=== PATIENT | female | born 1950 | race Caucasian/White ===

== ENCOUNTER 2024-07-31 22:02 | Emergency (ER) | payer MEDICARE, SELFPAY ==
[2024-07-31] VITALS (8 sets, daily range): BP systolic 174–220; BP diastolic 76–94; PULSE 48–63; RESP 13–22; TEMP 35.7; O2SAT 95–97; BMI 33.6
--- NOTE | 2024-07-31 22:34 | EKG12_ITS ---
Test Reason : REPEAT CP Blood Pressure : */* mmHG Vent. Rate : 56 BPM Atrial Rate : 56 BPM P-R Int : 164 ms QRS Dur : 86 ms QT Int : 456 ms P-R-T Axes : 43 18 37 degrees QTcB Int : 440 ms Sinus bradycardia Septal infarct , age undetermined Abnormal ECG Confirmed by LA SALINAS MD [id number]), editor news ALICE HAQ ([id number]) on 08/03/2024 8:51:34 AM Referred By: Confirmed By: LA SALINAS MD
--- NOTE | 2024-07-31 22:48 | RAD_ITS ---
EXAM: XR Chest, 2 Views CLINICAL INDICATION: CHEST PAIN TECHNIQUE: Frontal and lateral views of the chest. COMPARISON: No relevant prior studies available. FINDINGS: LUNGS AND PLEURAL SPACES: Left lower lobe atelectasis or pneumonia. Clinical correlation is recommended. No pneumothorax. HEART: Unremarkable. No cardiomegaly. MEDIASTINUM: Unremarkable. Normal mediastinal contour. BONES/JOINTS: Unremarkable. No acute fracture. RAD/Chest PA and Lateral IMPRESSION: Left lower lobe atelectasis or pneumonia. Clinical correlation is recommended. Reading Location: [id number]
[2024-07-31 22:51] LABS: Absolute Lymphocyte Count 1.94 X10^3/uL (0.83-4.51); Absolute Neutrophil Count 3.3 X10^3/uL (2.0-7.7); Basophil# 0.03 X10^3/uL; Basophil% 0.5 % (0-1); Eosinophil# 0.31 X10^3/uL; Eosinophils% 5.1 % (0-5); Hematocrit 41.7 % (37-47); Lymphocyte # 1.94 X10^3/ul (0.83-4.51); Lymphocyte % 31.9 % (19-41); Mean Corp Hgb Conc 33.6 g/dL (32-36); Mean Corpuscular Hgb 29.9 pg (27.0-32.0); Mean Corpuscular Volume 88.9 fL (81-99); Mean Platelet Vol. 11.4 fl (6.2-12.0); Monocyte# 0.46 X10^3/uL; Monocyte% 7.6 % (0-10); NRBC Flagged by Analyzer 0 % (0-5); Neutrophil # 3.34 X10^3/uL (2.7-7.7); Neutrophil % 54.7 % (47-70); Platelet Count 222 K/mm3 (150-450); RBC Distribution Width SD 42.2 fl (35.1-43.9); Red Blood Count 4.69 M/mm3 (4.2-5.4); White Blood Count 6.1 K/mm3 (4.4-11.0)
--- NOTE | 2024-07-31 23:03 | EX.ED.DYSGE1 ---
HPI History of Present Illness Chief Complaint: Chest Pain Informant: patient and family Narrative Narrative: Patient is a 74-year-old female with past medical history of hypertension and hypothyroidism. She states over the past month she will occasionally developed mid lower chest/upper abdomen discomfort. She states that it can occur at any time and is not purely associated with exertion. She states that she thought it was related to potential constipation and therefore did not seek any previous evaluation for the discomfort. She states she is taking medications to help resolve constipation with that the discomfort is still reoccurring. She states that over the past month it would usually last just a few minutes and resolve. However today it was more intense in severity and lasted approximately 1 hour. Because of the increased severity and length of symptoms she decided to come in for evaluation. She states that there was no radiation of the pain there is no associated nausea or vomiting or diaphoresis or shortness of breath. She reports that without any medication she has had spontaneous resolution of her symptoms. PFSH PFS Home Medications ?Medication ?Instructions ?Recorded ?Last Taken ?Type ascorbate calcium (vitamin C) 500 500 mg PO BID 08/04/20 Unknown History mg tablet calcium carbonate (Antacid 200 mg PO BID 08/04/20 Unknown History (calcium carbonate)) cholecalciferol (vitamin D3) 25 25 mcg PO .qod 08/04/20 Unknown History mcg (1,000 unit) capsule lactobacillus combination no.8 3 3,000 mmu cells PO DAILY 08/04/20 Unknown History billion cell capsule (Adult Probiotic) loratadine 10 mg tablet (Allergy 10 mg PO DAILY 08/04/20 Unknown History Relief (loratadine)) multivitamin (Daily Multi-Vitamin 1 tab PO DAILY 08/04/20 Unknown History tablet) prasterone (DHEA) 25 mg tablet 25 mg PO DAILY 08/04/20 Unknown History (DHEA) thyroid (pork) 30 mg tablet 30 mg PO DAILY 08/04/20 Unknown History ([place] Thyroid) amoxicillin 875 mg-potassium 1 tab PO Q12H #14 tabs 03/06/22 Unknown Rx clavulanate 125 mg tablet ondansetron 4 mg disintegrating 4 mg PO TID PRN nausea and 08/01/24 Unknown Rx tablet vomiting #21 tabs oxycodone-acetaminophen 5 mg-325 1 tab PO Q6H PRN pain 3 days #12 08/01/24 Unknown Rx mg tablet (Percocet) tabs Allergy/AdvReac Type Severity Reaction Status Date / Time No Known Allergies Allergy Verified 07/31/24 22:03 Social History Smoking Status: Never smoker alcohol intake: never ROS ROS ED Constitutional Constitutional ED: Denies chills or fever(s) Eyes Eyes: Denies blurry vision or change in vision ENT ENT ED: Denies sore throat Cardiovascular Cardiovascular: Reports chest pain; Denies palpitations or racing heartbeat Respiratory/Chest Respiratory/Chest: Denies cough or dyspnea Gastrointestinal Gastrointestinal: Reports abdominal pain and constipation; Denies diarrhea, nausea or vomiting Genitourinary Genitourinary ED: Denies dysuria or hematuria Musculoskeletal Musculoskeletal: Denies back pain Integumentary Denies rash Neurologic Neurologic: Denies headache(s) Hematologic/Lymphatic Hematologic/Lymphatic: Denies easy bleeding or easy bruising EXAM Physical Exam Const Vital Signs: 07/31/24 22:03 07/31/24 22:29 07/31/24 22:30 Temperature 96.3 F L Temperature Source Temporal Pulse Rate 56 L 54 L 48 L Respiratory Rate 15 20 H 13 Blood Pressure 220/93 H 174/76 H Blood Pressure Mean 135 102 Pulse Ox 97 96 95 Oxygen Delivery Method Room Air 07/31/24 22:45 07/31/24 22:45 07/31/24 23:10 Temperature Temperature Source Pulse Rate 54 L 51 L Respiratory Rate 21 H 22 H Blood Pressure 190/88 H 190/88 H Blood Pressure Mean 117 117 Pulse Ox 96 97 Oxygen Delivery Method 07/31/24 23:15 07/31/24 23:30 07/31/24 23:45 Temperature Temperature Source Pulse Rate 63 63 Respiratory Rate 18 18 Blood Pressure 201/84 H 176/94 H 188/80 H Blood Pressure Mean 115 119 110 Pulse Ox 95 96 Oxygen Delivery Method 08/01/24 00:00 08/01/24 00:15 08/01/24 00:23 Temperature Temperature Source Pulse Rate 63 63 Respiratory Rate 19 H 18 Blood Pressure 199/69 H 189/85 H 189/85 H Blood Pressure Mean 101 112 119 Pulse Ox 95 94 Oxygen Delivery Method Room Air 08/01/24 00:33 08/01/24 00:45 08/01/24 01:00 Temperature Temperature Source Pulse Rate 66 67 64 Respiratory Rate 17 20 H 15 Blood Pressure Blood Pressure Mean Pulse Ox 96 96 Oxygen Delivery Method 08/01/24 01:15 08/01/24 01:30 08/01/24 01:35 Temperature Temperature Source Pulse Rate 61 79 Respiratory Rate 19 H 22 H Blood Pressure 111/85 H 148/74 H Blood Pressure Mean 94 93 Pulse Ox 96 97 Oxygen Delivery Method 08/01/24 01:40 08/01/24 01:45 08/01/24 02:00 Temperature Temperature Source Pulse Rate 72 70 67 Respiratory Rate 20 H 21 H 18 Blood Pressure 148/74 H 158/69 H 158/73 H Blood Pressure Mean 98 96 96 Pulse Ox 97 98 97 Oxygen Delivery Method Room Air 08/01/24 02:15 08/01/24 02:16 08/01/24 02:30 Temperature Temperature Source Pulse Rate 88 92 Respiratory Rate 24 H 55 H 35 H Blood Pressure 196/119 H 177/81 H Blood Pressure Mean 127 109 Pulse Ox 97 98 97 Oxygen Delivery Method 08/01/24 02:45 Temperature Temperature Source Pulse Rate 99 Respiratory Rate 22 H Blood Pressure Blood Pressure Mean Pulse Ox Oxygen Delivery Method Positive well nourished and well developed General Appearance ED: well developed; Negative for pallor HEENT HEENT Narrative: Normocephalic atraumatic Eyes PERRL and EOMs intact bilaterally General Eye ED: Negative for scleral icterus Neck supple and no JVD Chest Wall palpation of chest normal Chest Narrative: No bony deformity or subcutaneous emphysema noted No reproducible pain with palpation Resp normal respiratory effort and clear to auscultation bilaterally Cardio regular rhythm Rate: bradycardia and other Other Details: Bradycardic rate with regular rhythm No murmurs rubs or gallops No carotid bruit Radial and carotid pulses are equal and symmetric GI non-distended and no masses GI Narrative: Abdomen is soft and nondistended with normal active bowel sounds. Patient has pain with palpation in the midepigastric region without voluntary guarding or rigidity No pulsatile mass or fluid wave Auscultation: normoactive bowel sounds Palpation: soft Extremity normal to inspection Extremity Narrative: No asymmetric edema no pitting edema negative Homans' sign bilaterally Neuro oriented x3, CN's II-XII intact bilaterally and no sensory deficits noted Sensorium / Orientation: alert Motor Exam: strength 5/5 throughout Psych mental status grossly normal Skin no rashes or lesions noted and no wounds General Skin Exam: Negative for jaundice or pallor MDM MDM MDM Narrative Medical decision making narrative: Patient arrived to the ER hypertensive but otherwise with stable vitals and reports a past medical history of hypertension. Without any medication her blood pressure was starting to improve spontaneously. She reports lower mid chest/upper abdominal pain that has been intermittent nature for the past month. There is no radiation of the pain and no associated nausea vomiting or diaphoresis. This could be atypical acute coronary syndrome versus cardiac dysrhythmia versus pneumonia or pneumothorax. There is concern for dissection based on her hypertension. Patient may also have a hernia or pancreatitis. Secondary to this a basic workup was performed. There is no leukocytosis or left shift going against infectious process. Lipase is normal going against pancreatitis. Initial troponin is 12 the 2-hour delta changes by 4 points to 16 which is not clinically significant. The patient's D-dimer was also normal going against dissection or PE. On reevaluation her blood pressure continues to improve but now she is complaining of recurrent pain in the lower chest/mid abdomen region. Therefore elected to perform a CTA of the chest abdomen and pelvis to rule out pulmonary embolus pericardial effusion or dissection. CTA revealed a fat-containing umbilical hernia but otherwise no acute findings. Based on the fact the patient has a negative cardiac workup as well as no signs of PE or dissection I feel her pain is most likely due to the hernia based on its location. We discussed obtaining a 4-hour troponin but as her first 2 values rule her out from a cardiac standpoint and there is no other reason for her upper abdominal/lower chest discomfort I did not feel the need to obtain the 4-hour. Patient reports she is pain-free after Toradol. Her blood pressure has reduced between 15 and 25% which is the goal reduction in the ER and she does not have signs of endorgan damage so there is no need for admission based on the hypertension. Therefore at this time patient to be discharged home with symptomatic medication and follow-up with her family doctor to discuss referral to general surgery to discuss treatment about this hernia. She may also require referral to cardiology but her workup today does not indicate acute coronary syndrome. Of note the radiologist did interpret the chest x-ray as atelectasis versus pneumonia. The patient does not have a fever or cough or leukocytosis and therefore I do not feel this is pneumonia but most likely atelectasis. Also has a CTA was performed there is no signs of lung infection based on the CT scan which is a more in-depth picture of the tissue. Therefore as it does not clinically correlate and CT scan also confirms no sign of infection there is no need for antibiotics History & Record Review Discussion w/independent historian: Patient and Friend Lab Data Attestation: I reviewed the patient's lab results. Labs: Laboratory Results - last 24 hr 07/31/24 08/01/24 22:40 00:38 WBC 6.1 RBC 4.69 Hgb 14.0 Hct 41.7 MCV 88.9 MCH 29.9 MCHC 33.6 RDW Std Deviation 42.2 RDW Coeff of Thania 13.0 Plt Count 222 MPV 11.4 Immature Gran % (Auto) 0.200 Neut % (Auto) 54.7 Lymph % (Auto) 31.9 [place] % (Auto) 7.6 Eos % (Auto) 5.1 H Baso % (Auto) 0.5 Absolute Neuts (auto) 3.3 Absolute Lymphs (auto) 1.94 Nucleated RBC % 0 D-Dimer Quant (PE/DVT) 0.30 Sodium 138 Potassium 3.9 Chloride 103 Carbon Dioxide 24.4 Anion Gap 10 BUN 19 Creatinine 0.90 Estim Creat Clear Calc 52.79 Est GFR (MDRD) Non-Af 67 BUN/Creatinine Ratio 21.6 H Glucose 109 H Calcium 10.2 Magnesium 2.5 H Total Bilirubin 0.39 Direct Bilirubin 0.16 AST 32 ALT 22 Alkaline Phosphatase 98 Troponin T High Sens 12 Troponin T Hi Sens 2 Hr 16 H Total Protein 7.3 Albumin 4.3 Globulin 3.0 Lipase 25 Radiography Diagnostic Testing: Clinical Impression(s) from Imaging Studies Chest X-Ray 07/31/24 22:48 IMPRESSION: Left lower lobe atelectasis or pneumonia. Clinical correlation is recommended. Reading Location: [facility] Chest/Abdomen/Pelvis CTA 08/01/24 01:08 IMPRESSION: Thoracic and abdominal aorta appears within limits without aneurysm or dissection. Reading Location: [facility] Chest x-ray as interpreted by the emergency medicine incision reveals left lower lobe atelectasis Discharge Plan Triage Chief Complaint: Chest Pain ED Provider: Herbie Aleman Dx/Rx/DC Orders Clinical Impression: Nonspecific chest pain, Hernia, umbilical, Hypertension Instructions: Hypertension Dc, ED Chest Pain, Uncertain Cause, ED Hernia (Adult) Prescriptions: New ondansetron 4 mg tablet,disintegrating 4 mg PO TID PRN (Reason: nausea and vomiting) Qty: 21 0RF oxycodone-acetaminophen [Percocet] 5-325 mg tablet 1 tab PO Q6H PRN (Reason: pain) 3 Days Qty: 12 0RF No Action thyroid (pork) [[place] Thyroid] 30 mg tablet 30 mg PO DAILY ascorbate calcium (vitamin C) 500 mg tablet 500 mg PO BID calcium carbonate [Antacid (calcium carbonate)] 200 mg calcium (500 mg) tablet,chewable 200 mg PO BID multivitamin [Daily Multi-Vitamin] Tablet 1 tab PO DAILY DHEA 25 mg tablet 25 mg PO DAILY cholecalciferol (vitamin D3) 25 mcg (1,000 unit) capsule 25 mcg PO .qod loratadine [Allergy Relief (loratadine)] 10 mg tablet 10 mg PO DAILY Adult Probiotic 3 billion cell capsule 3,000 mmu cells PO DAILY Rx Instructions: administer with a meal amoxicillin-pot clavulanate 875-125 mg tablet 1 tab PO Q12H Qty: 14 0RF Primary Care Provider: Joanne Collins Referrals: Joanne Collins MD [Primary Care Provider] - Zara Regan MD [Med Staff - Active Staff] - (Umbilical hernia) Activity Restrictions/Additional Instructions: Your workup today did not show any signs of active heart damage and your CT scan did not show a blood clot or dissection/tear. It did display a fat-containing umbilical hernia. Based on your otherwise negative workup I feel that your current pain is most likely from this hernia. Follow-up with your family doctor as well as general surgeon to discuss further treatment options and return to the ER should you have any further concerns Print Language: Telugu Disposition Disposition: Home, Self Care
[2024-07-31 23:38] LABS: AST(SGOT) 32 U/L (<=31); Alanine Aminotransfer ALT/SGPT 22 U/L (<=34); Albumin, Serum 4.3 g/dL (3.4-4.8); Alkaline Phosphatase 98 U/L (35-104); Anion Gap 10 (5-15); BUN 19 mg/dL (4-19); BUN/Creat Ratio 21.6 RATIO (10-20); Bilirubin, Direct 0.16 mg/dL (0.00-0.30); Calcium,Total 10.2 mg/dL (7.6-11.0); Carbon Dioxide 24.4 mmol/L (21.0-32.0); Chloride 103 mmol/L (98-108); EST Glomerular Filtration Rate 67 (>60); Estimated Creatinine Clearance 52.79 ml/min (50-250); Glucose 109 mg/dL (70-99); Lipase 25 U/L (13-75); Magnesium 2.5 mg/dL (1.5-2.2); Potassium 3.9 mmol/L (3.3-5.1); Protein, Total 7.3 g/dL (5.9-8.4); Sodium Level 138 mmol/L (133-145); Total Bilirubin 0.39 mg/dL (0.00-1.30)
--- NOTE | 2024-07-31 23:40 | EKG12_ITS ---
Test Reason : CP Blood Pressure : */* mmHG Vent. Rate : 56 BPM Atrial Rate : 56 BPM P-R Int : 162 ms QRS Dur : 86 ms QT Int : 446 ms P-R-T Axes : 55 31 45 degrees QTcB Int : 430 ms Sinus bradycardia Possible Left atrial enlargement Borderline ECG Confirmed by BRAD NAQVI, LA ([id number]), editor in chief ALICE HAQ ([id number]) on 08/03/2024 8:51:48 AM Referred By: NOEMY Confirmed By: LA SALINAS MD
[2024-08-01] VITALS (17 sets, daily range): BP systolic 111–199; BP diastolic 69–119; PULSE 61–99; RESP 15–55; TEMP 36.9; O2SAT 94–98
[2024-08-01 00:09] LABS: Troponin T High Sensitivity 12 ng/L (<=14)
[2024-08-01] MEDS: hydrALAZINE 20 MG/ML Vial 10 MG IV (00:22)
[2024-08-01 00:57] LABS: Troponin T High Sens 2 HR 16 ng/L (<=14)
--- NOTE | 2024-08-01 01:08 | CT_ITS ---
PROCEDURE: CTA CHST, ABD, PEL W AND/OR WO 08/01/2024 REASON FOR EXAM: CHEST/ABD PAIN RULE OUT DISSECTION TECHNIQUE: Chest abdomen and pelvis CTA with intravenous contrast. Coronal and Sagittal reconstruction series, MIP images surgical clips right pelvis. Were provided. One or more dose reduction techniques were used (e.g., Automated exposure control, adjustment of the mA and/or kV according to patient size, use of iterative reconstruction technique. PATIENT PREPARATION: Per protocol ORAL CONTRAST TYPE: None. CONTRAST: 99 cc Isovue 370 IV RADIATION DOSE SUMMARY: CTDlvol: 16.69 mGy DLP: 1029.11 mGycm COMPARISON: None available FINDINGS: CHEST: Thoracic aorta appears within limits without aneurysm or dissection. Standard three-vessel arch. No pericardial or pleural effusion. No large central or hilar saddle pulmonary embolism. The central airways appear patent. Basilar atelectasis. The lungs appear clear. S shaped thoracolumbar scoliosis. ABDOMEN AND PELVIS: Abdominal aorta within limits without aneurysm or dissection. The celiac, SMA, renal arteries and LILIANA fill with contrast as expected. Right and left common and external iliac arteries appear within limits. Possible hepatic steatosis with either focal fatty sparing near the gallbladder fossa versus a transient hepatic attenuation difference. Small focus subcapsular high density posterior right lobe axial 92 and lateral left lobe axial 121 may represent transient hepatic attenuation difference. The gallbladder is not identified. The adrenal glands, kidneys, pancreas and spleen appear within limits. No bowel dilation or free air. Small fat containing umbilical hernia without stranding. Normal caliber appendix without secondary signs. The bladder appears within limits. No free fluid seen. CT/CTA Chst, Abd, Pel W and/or WO IMPRESSION: Thoracic and abdominal aorta appears within limits without aneurysm or dissecti on. Reading Location: [id number]
[2024-08-01] MEDS: Ketorolac 15 MG/ML Vial IV (01:23)
[2024-08-01] MEDS: Pantoprazole Sodium 40 MG in 0.9% Normal Saline (100mL MB+) 100 ML 330 MG IV (01:38)
[2024-08-01] MEDS: oxyCODONE 5 MG Tablet PO (03:19)
== END 2024-08-01 03:24 | disposition home or self-care (01) ==
PROVIDERS: Emergency Provider Emergency Medicine; PCP Internal Medicine; Visit Provider Emergency Medicine
DX: R07.9 Chest pain, unspecified (principal); I10 Essential (primary) hypertension; K42.9 Umbilical hernia without obstruction or gangrene
CPT/HCPCS: 71046; 71275; 74174; 80048; 80076; 83690; 83735; 84484; 85025; 85379; 93005; 96365; 96375; 99283; Q9967; A4216